=== PATIENT | male | born 2000 | race Two or more races ===

== ENCOUNTER 2022-10-23 09:14 | Emergency (ER) | payer OTHER, SELFPAY ==
--- NOTE | ~2022-10-23 | XR_ITS ---
EXAMINATION: XR FINGER, LEFT CLINICAL INFORMATION: Pain, swelling COMPARISON: None TECHNIQUE: Three views of the left fifth finger. FINDINGS: No evidence for fracture or dislocation. XR/XR finger LT min 2V IMPRESSION: No fracture or dislocation left fifth finger.
[2022-10-23 09:40] VITALS: BP 135/75; PULSE 77; RESP 16; TEMP 36.8; O2SAT 99; BMI 25.0
--- NOTE | 2022-10-23 09:56 | PC.NURSE ---
patient a&ox3, vss, pt awaiting xray
--- NOTE | 2022-10-23 10:02 | ED.UPPEXIN ---
HPI - Extremity Injury (Upper) General Chief Complaint: Extremity Injury, Upper Stated Complaint: Dislocated finger Time Seen by Provider: 10/23/22 09:49 Source: patient Mode of arrival: ambulatory Limitations: no limitations History of Present Illness HPI narrative: 22-year-old male presenting to the ER with complaints of left little finger pain/swelling after he was playing basketball yesterday and noticed his finger was dislocated therefore his friend reduced it for him. He reports that it intermittently dislocate since yesterday and he has to pull it to put it back into place. He denies any head injury or falls, neck injury, paresthesias, weakness or any other symptoms complaints or concerns or injuries at this time. complaint: injury to: left and finger (little finger) Onset (ago): day(s) (Yesterday) Other injuries: none Place: other (While playing basketball) Severity: mild Relieving factors: none Exacerbating factors: movement of extremity (/palpation) Context: sports-related injury Associated symptoms: denies other symptoms Treatments prior to arrival: other (Finger splint) Related Data Previous Rx's Medication Instructions Recorded ibuprofen 800 mg tablet 800 mg PO Q8H PRN pain #14 tabs 10/23/22 Allergies Allergy/AdvReac Type Severity Reaction Status Date / Time No Known Allergies Allergy Verified 10/23/22 09:44 Review of Systems Review of Systems: Constitutional : No Weight loss, No Fever, No Chills, No Night Sweats, No Fatigue, No Malaise ENT/Mouth : No Hearing loss, No Ear Pain, No Nasal Congestion, No Sinus Pain, No Hoarseness, No sore throat, No Rhinorrhea, No Swallowing Difficulty Eyes: No Eye Pain, No Swelling, No Redness, No Foreign Body, No Discharge, No Vision Changes Cardiovascular : No Chest Pain, No SOB, No Dyspnea on Exertion, No Orthopnea, No Edema, No Palpitations Respiratory : No Cough, No Sputum, No Wheezing, No Smoke Exposure, No Dyspnea Gastrointestinal : No Nausea, No Vomiting, No Diarrhea, No Constipation, No abdominal Pain, No Hematochezia, No Melena Genitourinary : no irregular bleeding, No Dysuria, No Urinary Frequency, No Hematuria, No Urinary Incontinence, No Urgency, No Flank Pain, No Urinary Flow Changes, No Hesitancy Musculoskeletal : + joint pain/swelling, No Myalgias Skin : No Skin Lesions, No rash Neuro : No Weakness, No Numbness, No Paresthesias, No Loss of Consciousness, No Dizziness, No Headache Psych : No Anxiety/Panic, No Depression, No SI/HI/AH/VH, No Social Issues, Heme/Lymph: No Bruising, No Bleeding,No Lymphadenopathy Endocrine : No Polyuria, No Polydipsia, No Temperature Intolerance Yes all other systems are reviewed and are negative [facility] Past Medical History Attestation statement: The following information was validated with the patient. Source: old records reviewed and nursing notes reviewed Social History Social History Alcohol intake: current Alcohol intake frequency: holidays/special occasions only Smoked in Last 30 Days: No Use of substances other than those prescribed or required for medical reasons: No Advance Directives: No Advance Directives Information Provided: Yes Physical Exam Vital Signs: Vital Signs: Last Vital Signs Temp 98.2 F 10/23/22 09:40 Pulse 77 10/23/22 09:40 Resp 16 10/23/22 09:40 BP 135/75 10/23/22 09:40 Pulse Ox 99 10/23/22 09:40 O2 Del Method 10/23/22 09:40 BMI result Body Mass Index 25.0 vital signs have been reviewed as normal and appeared to be correct. Blood pressure normal Heart rate normal. Respiration rate normal. Temperature normal. Oxygen saturation normal. Appearance: Alert. Oriented X3. No acute distress. Head: Normal external exam. Normocephalic. Atraumatic. Eyes: PERRLA. EOMI. Conjunctiva and sclera normal. Eyelids normal. ENT: Pharynx normal. Uvula midline. Moist mucous membranes. Neck: Normal inspection. Neck supple. FROM. CVS: Normal heart rate and rhythm. Respiratory: No respiratory distress. Painless inspiration. Skin: Skin warm and dry. Normal skin color. Normal skin turgor. No rashes/lesions/lacerations noted. Extremities: Patient with mild tenderness palpation to the left hand little finger at the PIP and D IP with mild soft tissue swelling. No obvious ligamentous or tendon injury noted. Patient has full range of motion. No tenderness to the anatomical snuffbox or the wrists or any other aspect of the hand/wrist. Patient has full range of motion of all other extremities and they are nontender. Neuro: Oriented X 3. No motor deficit. No sensory deficit. Reflexes normal. Normal steady gait. No focal neuro deficits noted. Vascular: + radial pulses/+ 2 distal pedal pulses/+2 dorsalis pedis b/l. Normal cap refill. No cyanosis noted to upper extremity nails and lower extremity toes nails. Course Course Course Narrative: 22-year-old male presenting to the ER with complaints of left little finger pain/swelling after he had a dislocation his friend reduced it for him while he was playing basketball yesterday. Reports persistent pain. Denies any other symptoms. On exam he has full range of motion although does have some mild soft tissue swelling and ecchymosis and tenderness to palpation to the PIP/PIP of the left little finger. No obvious deformities. No obvious ligamentous or tendon injury noted. No erythema noted. MCP joint normal. Sensation normal. Nail normal. Will obtain x-ray if negative will place in a finger splint treat symptomatically and instructed follow-up with PCP/orthopedic in the next few weeks and to return if any new worsening symptoms. Patient understands agrees with this plan. Medical Decision Making Independent Interpretation I performed an independent interpretation of an: Plain X-Ray Interpretation: EXAMINATION: XR FINGER, LEFT CLINICAL INFORMATION: Pain, swelling? COMPARISON: None? TECHNIQUE: Three views of the left fifth finger. FINDINGS: No evidence for fracture or dislocation.? XR/XR finger LT min 2V IMPRESSION: No fracture or dislocation left fifth finger. Radiology Impression Discussion of test interpretation with radiology: I have reviewed the radiologist's reading. Procedures Orthopedic Splinting/Casting Injury #1: Side: left Upper Extremity Injury Location: finger Upper Extremity Immobilizer: finger (other) Discharge Plan Discharge Clinical Impression: Finger sprain Patient Disposition: Home, Self-Care Instructions: Finger Sprain (ED), Finger Dislocation (ED) Prescriptions: New ibuprofen 800 mg tablet 800 mg PO Q8H PRN (Reason: pain) Qty: 14 0RF Referrals: [facility] [place] [facility] [Provider Group] (Call to make a follow-up appointment within the next few weeks) Stand Alone Forms: Work/School Release
--- NOTE | 2022-10-23 10:02 | PC.NURSE ---
radiology at bedside
== END 2022-10-23 11:27 | disposition home or self-care (01) ==
PROVIDERS: Emergency Provider Student in an Organized Health Care Education/Training Program
DX: S63.617A Unspecified sprain of left little finger, initial encounter (principal); M79.645 Pain in left finger(s); Y93.67 Activity, basketball; Y93.9 Activity, unspecified; Y92.310 Basketball court as the place of occurrence of the external cause; Y99.9 Unspecified external cause status
CPT/HCPCS: 29130; 73140; 99283; 99284

== ENCOUNTER 2022-10-30 11:42 | Outpatient (REF) | payer OTHER, SELFPAY ==
--- NOTE | ~2022-10-30 | XR_ITS ---
EXAMINATION: XR HAND, LEFT CLINICAL INFORMATION: Left hand pain COMPARISON: 10/23/2022 TECHNIQUE: PA, lateral, and oblique views of the left hand. FINDINGS: The bones and soft tissues are normal. No fracture. Alignment is anatomic. Joint spaces are maintained. No erosions or soft tissue calcifications. XR/XR hand LT min 3V IMPRESSION: Normal left hand.
== END 2022-10-30 11:43 | disposition home or self-care (01) ==
LOC: HO.HOSX 11:42
PROVIDERS: Visit Provider Orthopaedic Surgery
DX: S63.287A Dislocation of proximal interphalangeal joint of left little finger, initial encounter (principal)
CPT/HCPCS: 73130; 99202

== ENCOUNTER 2022-11-26 12:04 | Outpatient (REF) | payer OTHER, SELFPAY ==
--- NOTE | ~2022-11-26 | XR_ITS ---
EXAMINATION: XR HAND, LEFT CLINICAL INFORMATION: Pain left hand COMPARISON: None TECHNIQUE: PA, lateral, and oblique views of the left hand. FINDINGS: There is a flexion deformity PIP joint fifth digit. No visible fracture or dislocation. There is mild dorsal soft tissue swelling. XR/XR hand LT min 3V IMPRESSION: Flexion deformity PIP joint fifth digit with mild dorsal soft tissue swelling. There is no underlying acute fracture or dislocation seen.
== END 2022-11-26 12:05 | disposition home or self-care (01) ==
LOC: HO.HOSX 12:04
PROVIDERS: PCP Internal Medicine; Visit Provider Orthopaedic Surgery
DX: S63.287D Dislocation of proximal interphalangeal joint of left little finger, subsequent encounter (principal); M20.022 Boutonniere deformity of left finger(s); X58.XXXD Exposure to other specified factors, subsequent encounter
CPT/HCPCS: 73130; 99212

== ENCOUNTER → 2024-02-18 13:30 | Outpatient (RCR) | payer OTHER, SELFPAY ==
--- NOTE | 2022-11-27 16:21 | MHC.OT.EP ---
[address] [phone] Occupational Therapy Plan of Care Patient Name: Dallin Ness Date of Evaluation: 11/27/22 Diagnosis: Boutonniere deformity of left small finger. Pain Location: 0-5 left small finger. Ache Pain Score: 5 Pain Scale Used: Numeric (0 - 10) Aggravating Factors: Gripping Alleviating Factors: Assessment: [age] yo male with left small finger Boutonniere deformity s/p left small finger dislocation playing basketball 10/22/22 Today he presents with a PIPj flexion contracture and hyper ext DIPjt He will benefit from continued OT for splinting and ther ex. A custom digit based volar gutter for PIPj ext was fabricated today and pt practice with blocking ex for DIP jt flexion. He has a good understanding of Boutonniere precautions and the treatment plan . Pt will be scheduling follow up OT with another outpatient OT dept due to his insurance coverage Frequency and Duration: The patient will be seen NA Short Term Goals: NA Chute Worker Goals: NA Treatment Plan: D/C due to pt insurance plan requiring service at another facility Electronically Signed By: Janneth Reynoso OT CHT CLT Please Sign and return to therapist. Thank you once again for your referral.
== END | disposition home or self-care (01) ==
LOC: HO.OT 11-27 10:54
PROVIDERS: PCP Internal Medicine; Visit Provider Orthopaedic Surgery
DX: M20.022 Boutonniere deformity of left finger(s) (principal); S63.287A Dislocation of proximal interphalangeal joint of left little finger, initial encounter
CPT/HCPCS: 97110; 97166; 97760